=== PATIENT | male | born 1970 | race Caucasian/White ===

== ENCOUNTER 2018-02-05 00:59 | Inpatient (IN) | payer OTHER, BC ==
[2018-02-04 15:30] LABS: INR 1.05
--- NOTE | 2018-02-04 19:34 | HISTORY AND PHYSICAL ---
DATE OF ADMISSION: February 05, 2018 IDENTIFICATION AND CHIEF COMPLAINT Rajeev is a 47-year-old gentleman with the chief complaint of right hip pain. HISTORY OF PRESENT ILLNESS Patient has a longstanding history of progressive posttraumatic hip arthritis after prior labral tears and loose body formation in his hip from a work- related injury. At this point, he has end-stage degenerative changes. Surgery is indicated to relieve pain after failure of other lesser measures. PAST MEDICAL HISTORY * History of obesity, status post Lap-Band surgery. * He does have sleep apnea. He is treated with a BiPAP. ALLERGIES He has no known drug allergies. CURRENT MEDICATIONS He takes no medications on a daily basis. PAST SURGICAL HISTORY * Prior hip arthroscopy related to the same work-related trauma. * The above-mentioned Lap-Band surgery. FAMILY HISTORY Noncontributory. SOCIAL HISTORY Negative for tobacco and alcohol use. REVIEW OF SYSTEMS Negative. PHYSICAL EXAMINATION GENERAL: Deandre is a well-developed, well-nourished man, appears stated age. HEENT: He is normocephalic, atraumatic. NECK: Supple. LUNGS: Clear. HEART: Regular. ABDOMEN: Soft. ORTHOPEDIC: The right hip is extremely stiff at the end range of flexion and rotation. He has pain with these attempted motions. His hip girdle strength is normal. Skin over it looks intact. His old portals are well healed. Calves nontender. Neurovascular function intact. SKIN: Good condition. RADIOGRAPHS Demonstrate end-stage hip arthritis. ASSESSMENT * Right hip end-stage posttraumatic arthritis, painful and debilitating, refractory to conservative care. PLAN Per patient request, going to proceed with total hip arthroplasty. The nature of the procedure, risks, benefits, and nonoperative alternatives reviewed. Risks of the procedure include, but are not limited to , major medical or anesthetic complication, infection, neurovascular injury, blood transfusion, stiffness, scarring, fracture, tendon rupture, instability, leg length discrepancy, implant loosening, migration, or failure, persistent or recurrent pain, need for additional surgery, and other unforeseen. He understands and wishes to proceed. Signed permit is placed in the chart. No guarantees given or implied. [facility]
[2018-02-05] VITALS (12 sets, daily range): BP systolic 112–130; BP diastolic 63–78
[~2018-02-05] VITALS: Ht 177.8 cm; Wt 154.7 kg
[~2018-02-05 00:59] MED LIST: HYDR473S13 PO
[2018-02-05] MEDS ORDERED: ACETAMINOPHEN(*)1000 MG/100 ML 100 ML IVPB ONE (06:10)
[2018-02-05] MEDS ORDERED: FAMOTIDINE(*) 20MG/50ML PREMIX 50 ML IVPB ONE (06:10)
[2018-02-05] MEDS ORDERED: LIDOCAINE/SOD BICARB 8.4% SYR ID ONE (07:30)
[2018-02-05] MEDS ORDERED: PREGABALIN 150 MG CAPSULE PO ONE (07:30)
[2018-02-05] MEDS ORDERED: ACETAMINOPHEN 500 MG TAB PO ONE (07:30)
[2018-02-05] MEDS ORDERED: TRANEXAMIC AC 1000 MG/10ML SDV 1,000 MG in DEXTROSE 5% 50 ML BAG 50 ML IV ONE (07:30)
[2018-02-05] MEDS ORDERED: CELECOXIB 200 MG CAP PO ONE (07:30)
[2018-02-05] MEDS ORDERED: cloNIDine EPIDUR INJ 100MCG/ML 40 MCG, ROPIVACAINE 0.5% 20 ML VIAL 25 ML, EPINEPHrine H... INJ ONE (07:30)
[2018-02-05] MEDS ORDERED: NORMOSOL R SOLN(*) 1000 ML BAG 1,000 ML IV PRN ×2 (07:30→11:10)
[2018-02-05] MEDS ORDERED: FAMOTIDINE 20 MG TAB PO ONE (07:30)
[2018-02-05] MEDS ORDERED: ceFAZolin(*) 2GM/D5W 50ML 50 ML IVPB ONE (07:30)
[2018-02-05] MEDS ORDERED: MIDAZOLAM 2 MG/2 ML VIAL ONE (07:40)
[2018-02-05] MEDS ORDERED: fentaNYL CITR 100 MCG/2 ML AMP ONE ×2 (07:40→11:34)
[2018-02-05] MEDS ORDERED: DEXAMETHASONE SOD PHOS 10MG/ML ONE (07:43)
[2018-02-05] MEDS ORDERED: PROPOFOL EMUL(*) 10MG/ML 20 ML 20 ML ONE (07:43)
[2018-02-05] MEDS ORDERED: ONDANSETRON 4 MG/2 ML VIAL ONE (07:43)
[2018-02-05] MEDS ORDERED: LIDOCAINE MPF 1% 5 ML VIAL ONE (07:43)
[2018-02-05] MEDS: MIDAZOLAM 2 MG/2 ML VIAL IVP PRN ×2 (07:55→08:08)
[2018-02-05] MEDS ORDERED: ROCURONIUM BROM 10 MG/ML 10 ML ONE (08:30)
[2018-02-05] MEDS ORDERED: SUCCINYLCHOL CHL 200MG/10ML VL ONE (08:30)
[2018-02-05] MEDS ORDERED: VANCOMYCIN 1 GM VIAL ONE (10:04)
[2018-02-05] MEDS ORDERED: BENZOCAINE/MENTHOL 1 EACH LOZG PO PRN (11:10)
[2018-02-05] MEDS ORDERED: ZOLPIDEM TARTRATE 5 MG TAB PO PRN (11:10)
[2018-02-05] MEDS ORDERED: FLUSH 10 ML SYR IVP PRN (11:10)
[2018-02-05] MEDS ORDERED: diphenhydrAMINE 25 MG CAP PO PRN (11:10)
[2018-02-05] MEDS ORDERED: BISACODYL 10 MG SUPP PR PRN (11:10)
[2018-02-05] MEDS ORDERED: PROMETHAZINE 25 MG/ML 1 ML AMP IVP PRN (11:10)
[2018-02-05] MEDS ORDERED: diphenhydrAMINE 50 MG/ML VIAL IVP PRN (11:10)
[2018-02-05] MEDS ORDERED: MAGNESIUM HYDROXIDE* 30ML UDCP PO PRN (11:10)
[2018-02-05] MEDS ORDERED: APAP/HYDROCODONE 325/7.5 TAB PO PRN (11:10)
[2018-02-05] MEDS ORDERED: ACETAMINOPHEN 325 MG TAB PO PRN (11:10)
[2018-02-05] MEDS ORDERED: PROMETHAZINE 25 MG/ML 1 ML AMP ONE (11:21)
--- NOTE | 2018-02-05 11:38 | RADIOLOGY IMAGING REPORT ---
FAC[place] [facility] [place] NAME: Deandre Pachceo : 1970 MR: [id number] V: [id number] EXAM DATE: ORDERING PHYSICIAN: JOSE BLANCHARD TECHNOLOGIST: Location: [facility] Patient: Deandre Pacheco : 1970 Visit/Account:[id number] Date of Sevice: 02/05/2018 Exam type: PELVIS History: S/P TOTAL RIGHT HIP ARTHROPLASTY CHECK PLACEMENT Comparison: None. Findings: Single AP view of the lower pelvis centered just below the level the hip joints demonstrates a right hip arthroplasty that appears in good anatomic alignment on this single AP view IMPRESSION: 1. As above Report Dictated By: Irma Musa MD at 02/05/2018 11:34 AM Report E-Signed By: Irma Musa MD at 02/05/2018 11:34 AM WSN:[id number]
[2018-02-05] MEDS ORDERED: ACETAMINOPHEN ADULT 160 MG/5ML 160 MG/5 ML UDBTL PO PRN (13:15)
--- NOTE | 2018-02-05 13:37 | Hospitalist Consultation ---
History of Present Illness Requesting Physician Dr. Womack Reason for Consult Medical Management Chief Complaint s/p right hip replacement History of Present Illness He was admitted s/p right hip replacement. It is reported the surgery went well and without complication. History Problems: (1) DARIEN (obstructive sleep apnea) Status: Chronic (2) Hx of laparoscopic gastric banding Status: Chronic Home Meds Reported Medications Hydrocodone Bit/Acetaminophen (LORTAB 7.5 MG-325 MG/15 ML MATA) 473 Ml Solution, 15 ML PO QID Y for PAIN 01/29/18 Allergies: Coded Allergies: No Known Drug Allergies (Unverified , 01/29/18) Patient History: FH: Parkinson's disease FATHER FH: colon polyps MOTHER Hx Smoking: No Smoking Status: Never Smoker Caffeine/Cups Per Day: NONE Hx Alcohol Use: No Hx Substance Use Disorder: No Social Drug Use: Never History of IV Drug Use: No Review of Systems All Systems Reviewed/Normal: Yes, Except as Noted Exam Vital Signs Vital Signs Date Time Temp Pulse Resp B/P (MAP) Pulse Ox O2 Delivery O2 Flow Rate FiO2 02/05/18 12:43 98.1 59 12 114/63 (80) 94 Nasal Cannula 2.0 General Appearance: Alert, Awake, No Acute Distress, Afebrile Neuro: No Gross deficits Cardiovascular: Regular Rate and Rhythm Respiratory: No Respiratory Distress, Clear to Auscultation Extremities: Warm, Perfused Psych: Alert & Oriented X3, Appropriate Mood & Affect Assessment and Plan Problems: (1) Status post right hip replacement Status: Acute Assessment & Plan: Followed by Dr. Womack. He will be placed on Aspirin 324mg ( 4-baby Aspirin) for DVT prophylaxis. He has no history of DVT or PE. (2) DARIEN (obstructive sleep apnea) Status: Chronic Assessment & Plan: He is on BiPap at night. He did bring his machine to use during admission. (3) Hx of laparoscopic gastric banding Status: Chronic Assessment & Plan: He has difficulty with pills secondary to lap band. He reports his medications must be in liquid form to pass the lap band. He was placed on chewable aspirin and pain medications were changed to liquid form. Venous Thromboembolism Antithrombotics Is Pt On Any Antithrombotics?: No ANTONIA MARIE NETWORK LIAISON Feb 05, 2018 13:36
[2018-02-05] MEDS: HYDROCOD/ACETAMIN 2.5-108/5 ML 5 ML UDC PO PRN ×2 (15:49→20:13)
--- NOTE | 2018-02-05 16:05 | OPERATIVE REPORT 1 ---
EVENT DATE: February 05, 2018 SURGEON: Lucas Womack MD ANESTHESIOLOGIST: Joe Kang MD ANESTHESIA: General plus spinal. ADAPTIVE PHYSICAL EDUCATION SPECIALIST: Alessio Johnson PA-C PREOPERATIVE DIAGNOSIS Right hip end-stage posttraumatic arthritis. POSTOPERATIVE DIAGNOSIS Right hip end-stage posttraumatic arthritis. PROCEDURE PERFORMED Right total hip arthroplasty. ESTIMATED BLOOD LOSS 500 mL DRAINS None. SPECIMENS None. COMPLICATIONS None apparent. IMPLANTS USED Hudson system with SecurFit, 132-degree neck angle hip stem size 11, a Biolox Delta Ceramic C-Taper femoral head, 36 mm standard neck length, a Trident PSL SOTO cluster acetabular shell size 56 with a Trident X3, zero-degree polyethylene insert to accommodate a 36 mm head. INDICATIONS Patient has had trauma to his hip from a work-related incident including labral tearing and formation of loose bodies. He has gone on to develop severe posttraumatic arthritis which is progressively painful, debilitating, and refractory to conservative measures. Surgery is indicated to relieve symptoms. DESCRIPTION OF PROCEDURE Patient was taken to the operating room, placed supine on the operating table. General anesthesia is induced after spinal block is administered by the anesthesiologist. Antibiotics and TXA are administered IV. Patient is positioned in the left lateral decubitus and his pelvis secured in a vertical position on a well-padded pegboard. All bony prominences and superficial nerves are well padded. Right hip girdle and lower extremity are prepped and draped free in the usual sterile fashion for orthopedic surgery. A standard posterolateral approach is made, carried down through the skin and deep subcutaneous layer to the deep fascia. Fascia is incised over the tip of the trochanter, extended distally in line with the femur, proximally in line with the duncan fibers. Duncan fibers are split bluntly. Trochanteric bursa is excised. Interval between the abductor and external rotator is identified, and the abductor mechanism is protected with a blunt Hohmann. An L capsulotomy/ tenotomy is made with the horizontal limb above the piriformis and the capsule and external rotators are taken directly off bone posteriorly. These are tagged for later reattachment. The femoral head is dislocated. End-stage arthritic change is noted. Additional loose bodies are removed from the joint space. A 1.5 cm neck cut is made consistent with preoperative templating. Femoral head is extracted. Femur is translocated anteriorly. Merle-acetabular retractors are placed with the tips down on bone. Labrum and pulvinar are excised. Transverse acetabular ligament is identified. The reaming starts at 44 and works up to 56 in 2 mm increments. Nice rim contact is obtained. A 56 trial has good [id number] fit. The floor of the acetabulum is touched with the 57 to accommodate the raised rim liner to minimize fracture risk. Surfaces are copiously lavaged, and the actual shell is impacted in approximately 45 degrees of lateral opening and 15 to 20 degrees of anteversion using the transverse acetabular ligament, extracorporeal guide, and internal bony landmarks to guide ideal socket placement. Rock-solid fixation is achieved. No adjuvant fixation felt to be needed. The shell is lavaged and dried, and the liner is impacted into the shell. Attention is turned to femoral preparation. The superior neck is resected with a [employer] cutter. A Liu awl finds the canal. Tapered reaming is performed up to size 11 where good endosteal contact is obtained. Broaching starts at 9 and works up to 11. The 11 broach has good stability and fills the metaphysis nicely. Trial reduction is performed off this. Good mu-ism of the soft tissue tension and stability are achievable. The broach is extracted. The actual stem is impacted and seats at the same height. Trial reduction is performed with various neck lengths. The standard is felt to be optimal. The Franz taper is lavaged and dried. The femoral head is impacted into position. Joint is reduced. The external rotators and capsule are reapproximated anatomically through drill holes in the posterolateral greater trochanter. The wound is lavaged. Hemostasis is assured. A gram of vancomycin powder is placed in the deep wound. Deep fascia closed with #2 Ethibond distally, #2 Vicryl proximally. Subcutaneous tissue is closed with 3-0 Vicryl, skin with surgical irena, Xeroform and 4 x 4's in a dry, sterile dressing, and a hip wrap. Patient is rolled supine. Abduction pillow is placed. He is awakened from anesthesia and taken to the recovery room in stable condition having tolerated the procedure well. Plan is for standard [facility] rehab protocol, posterior hip precautions, and weightbearing as tolerated. [facility]
[2018-02-05] MEDS: ceFAZolin(*) 1 GM VIAL 1 GM in NS(*) 0.9% 100 ML ADDVANT BAG 100 ML IVPB SCH (17:33)
[2018-02-05] MEDS: CELECOXIB 200 MG CAP PO SCH (17:40)
[2018-02-06] MEDS: HYDROCOD/ACETAMIN 2.5-108/5 ML 5 ML UDC PO PRN ×6 (00:31→23:11)
[2018-02-06] MEDS: ceFAZolin(*) 1 GM VIAL 1 GM in NS(*) 0.9% 100 ML ADDVANT BAG 100 ML IVPB SCH ×2 (00:33→08:30)
[2018-02-06 03:15] VITALS: BP 123/77
[2018-02-06 05:53] LABS: PLATELET COUNT, AUTOMATED 146 K/uL (150-450)
[2018-02-06] MEDS: DIAZEPAM 5 MG TAB PO PRN ×3 (06:00→18:36)
[2018-02-06 08:15] VITALS: Ht 177.8 cm; Wt 154.7 kg
[2018-02-06] MEDS: CELECOXIB 200 MG CAP PO SCH ×2 (08:29→17:06)
[2018-02-06] MEDS: ASPIRIN 81 MG CHEW PO SCH (08:29)
[2018-02-06 08:38] VITALS: BP 138/79
[2018-02-06] MEDS ORDERED: ASPIRIN 325 MG TAB PO SCH (09:00)
--- NOTE | 2018-02-06 10:43 | Hospitalist Progress Note ---
Subjective Progress Notes Subjective He has complaints of pain to the surgical site. He had no acute events overnight. Patient Complains of: Cardiovascular: No: Chest Pain Respiratory: No: Shortness of Breath Physical Exam Vital Signs Date Time Temp Pulse Resp B/P (MAP) Pulse Ox O2 Delivery O2 Flow Rate FiO2 02/06/18 08:40 94 02/06/18 08:40 Room Air 02/06/18 08:38 97.7 74 16 138/79 (98) 02/05/18 12:43 2.0 Intake and Output 02/07/18 01:00 Intake Total 100 ml Balance 100 ml IV Total 100 ml # Voids 2 General Appearance: Alert, Awake, No Acute Distress, Afebrile Neuro: No Gross deficits Cardiovascular: Regular Rate and Rhythm Respiratory: No Respiratory Distress, Clear to Auscultation GI: Soft and Non-Tender Psych: Alert & Oriented X3, Appropriate Mood & Affect Result Diagram: 02/06/18 0533 Assessment and Plan Problems: (1) Status post right hip replacement Status: Acute Assessment & Plan: Followed by Dr. Womack. He will be placed on Aspirin 324mg ( 4-baby Aspirin) for DVT prophylaxis. He has no history of DVT or PE. (2) DARIEN (obstructive sleep apnea) Status: Chronic Assessment & Plan: He is on BiPap at night. He did bring his machine to use during admission. (3) Hx of laparoscopic gastric banding Status: Chronic Assessment & Plan: He has difficulty with pills secondary to lap band. He reports his medications must be in liquid form to pass the lap band. He was placed on chewable aspirin and pain medications were changed to liquid form. Exam Sepsis Risk: No Definite Risk ANTONIA MARIE PROCESS ENGINEERING MANAGER Feb 06, 2018 10:43
[2018-02-06 15:58] VITALS: BP 139/75
[2018-02-06 19:12] VITALS: BP 145/74
[2018-02-06 23:05] VITALS: BP 125/76
[2018-02-07 03:41] VITALS: BP 116/73
[2018-02-07] MEDS: HYDROCOD/ACETAMIN 2.5-108/5 ML 5 ML UDC PO PRN ×3 (03:44→13:11)
[2018-02-07 05:42] LABS: PLATELET COUNT, AUTOMATED 114 K/uL (150-450)
[2018-02-07] MEDS ORDERED: CELE-1 PO (08:14)
[2018-02-07] MEDS ORDERED: HYDR-4308 PO (08:15)
[2018-02-07] MEDS: CELECOXIB 200 MG CAP PO SCH (08:44)
[2018-02-07] MEDS: ASPIRIN 81 MG CHEW PO SCH (08:44)
[2018-02-07] MEDS ORDERED: ASPI-870 PO (09:37)
--- NOTE | 2018-02-07 11:16 | Hospitalist Progress Note ---
Subjective Progress Notes Subjective He has no complaints this morning. He had no acute events overnight. Patient Complains of: Cardiovascular: No: Chest Pain Respiratory: No: Shortness of Breath Physical Exam Vital Signs Date Time Temp Pulse Resp B/P (MAP) Pulse Ox O2 Delivery O2 Flow Rate FiO2 02/07/18 09:02 92 Room Air 02/07/18 03:41 97.6 75 16 116/73 (87) 02/05/18 12:43 2.0 Intake and Output 02/08/18 01:00 Intake Total 240 ml Balance 240 ml Intake Oral 240 ml # Voids 2 General Appearance: Alert, Awake, No Acute Distress, Afebrile Neuro: No Gross deficits Cardiovascular: Regular Rate and Rhythm Respiratory: No Respiratory Distress, Clear to Auscultation Psych: Alert & Oriented X3, Appropriate Mood & Affect Result Diagram: 02/07/18 0517 Assessment and Plan Problems: (1) Status post right hip replacement Status: Acute Assessment & Plan: Followed by Dr. Womack. He will be placed on Aspirin 324mg ( 4-baby Aspirin) for DVT prophylaxis. He has no history of DVT or PE. (2) DARIEN (obstructive sleep apnea) Status: Chronic Assessment & Plan: He is on BiPap at night. He did bring his machine to use during admission. (3) Hx of laparoscopic gastric banding Status: Chronic Assessment & Plan: He has difficulty with pills secondary to lap band. He reports his medications must be in liquid form to pass the lap band. He was placed on chewable aspirin and pain medications were changed to liquid form. Exam Sepsis Risk: No Definite Risk ANTONIA MARIE Feb 07, 2018 11:16
== END 2018-02-07 14:00 | disposition home or self-care (01) | DRG 470 ==
LOC: OR 00:59 → MED 12:40
PROVIDERS: ADMIT Orthopaedic Surgery; ATTEND Orthopaedic Surgery
PROC: 5A09357 Assistance with Respiratory Ventilation, Less than 24 Consecutive Hours, Continuous Positive Airway Pressure (ICD-10-PCS; 2018-02-05)
PROC: 0SR904A Replacement of Right Hip Joint with Ceramic on Polyethylene Synthetic Substitute, Uncemented, Open Approach (ICD-10-PCS; principal; 2018-02-05 08:17)
DX: M16.51 Unilateral post-traumatic osteoarthritis, right hip (principal); Z68.42 Body mass index [BMI] 45.0-49.9, adult; G47.33 Obstructive sleep apnea (adult) (pediatric); E66.9 Obesity, unspecified; Z99.81 Dependence on supplemental oxygen
CPT/HCPCS: 36415; 72170; 85025; 85610; 86850; 86900; 86901; 97161; 97165; C1776; J0131; J0171; J0330; J0690; J0735; J1100; J1885; J2001; J2250; J2405; J2550; J2704; J2795; J3010; J3370; J3490; J7050; J7060